=== PATIENT | female | born 2005 | race Caucasian/White ===

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

== ENCOUNTER 2023-04-10 18:37 | Outpatient (REF) | payer SELFPAY ==
[2023-04-12 14:52] LABS: Chlamydia Result Negative (Negative); GC Result Negative (Negative)
== END 2023-04-10 18:38 | disposition home or self-care (01) ==
LOC: NCHCN 18:37
PROVIDERS: PCP Physician Assistant; Visit Provider Physician Assistant
DX: R30.0 Dysuria (principal); R82.79 Other abnormal findings on microbiological examination of urine
CPT/HCPCS: 87077; 87491; 87591; 87086; 87186

== ENCOUNTER 2023-06-11 15:00 | Outpatient (REF) | payer OTHER, SELFPAY ==
[2023-06-13 08:02] LABS: HIV-1/2 Ag & Ab Screen Negative (Negative)
[2023-06-13 08:15] LABS: Hepatitis C Ab w Rflx HCV PCR Negative (Negative)
[2023-06-13 08:21] LABS: Hepatitis B Surface Ag Negative (Negative)
[2023-06-13 10:35] LABS: Syphilis Serology (RPR) Negative (Negative)
== END 2023-06-11 15:01 | disposition home or self-care (01) ==
LOC: NCHCN 15:00
PROVIDERS: PCP Physician Assistant; Visit Provider Physician Assistant
DX: Z11.3 Encounter for screening for infections with a predominantly sexual mode of transmission (principal); Z11.4 Encounter for screening for human immunodeficiency virus [HIV]; Z11.59 Encounter for screening for other viral diseases
CPT/HCPCS: 86803; 87340; 87389; 86592

== ENCOUNTER 2025-03-03 11:16 | Outpatient (REF) | payer BC, SELFPAY | END 2025-03-03 11:17 | disposition home or self-care (01) | LOC: NCHCN 11:16 | PROVIDERS: PCP Physician Assistant; Visit Provider Physician Assistant | DX: R39.9 Unspecified symptoms and signs involving the genitourinary system (principal) | CPT/HCPCS: 87086 ==